=== PATIENT | male | born 1945 | race Caucasian/White ===

== ENCOUNTER 2016-12-22 08:16 | Day surgery (SDC) | payer OTHER ==
[2016-12-22] VITALS (12 sets, daily range): BP systolic 135–196; BP diastolic 68–99; PULSE 67–133; TEMP 36.7–36.9; O2SAT 94–98; Ht 172.7 cm; Wt 115.7 kg
[~2016-12-22] VITALS: Ht 172.7 cm; Wt 115.7 kg
[~2016-12-22 08:16] MED LIST: ALBUAER2 INH; ASPEC81 PO; BNC20 PO; CYAN10005 PO; ESCI10TA17 PO; PRLSR20 PO; SIMV20TA2 PO; [UNRECOGNIZED DRUG - CODE] PO
[2016-12-22] MEDS ORDERED: LIDOCAINE HCL 2% LOCAL 50ML VIAL INFIL ONE (08:17)
[2016-12-22] MEDS ORDERED: FENTANYL CITRATE INJ 50 MCG/1 ML 2 ML VIAL IV ONE ×2 (08:17→11:30)
[2016-12-22] MEDS ORDERED: LEVALBUTEROL 1.25MG/3ML NEB INH ONE (08:17)
[2016-12-22] MEDS ORDERED: LIDOCAINE 4% W/AFRIN NASAL SOLN 4ML ONE (08:17)
[2016-12-22] MEDS ORDERED: MIDAZOLAM HCL 5 MG/ML 1 ML VIAL IV ONE ×2 (08:17→11:30)
[2016-12-22] MEDS ORDERED: IBUP-1449 PO (08:35)
[2016-12-22] MEDS ORDERED: GLC/500 PO (08:57)
[2016-12-22] MEDS ORDERED: CHOL1000 PO (08:59)
[2016-12-22] MEDS ORDERED: [UNRECOGNIZED DRUG - OTHER] PO (08:59)
[2016-12-22] MEDS ORDERED: INSU70IN2 SC (09:04)
[2016-12-22] MEDS ORDERED: INSDGI SC (09:04)
--- NOTE | 2016-12-22 10:24 | History & Physical Bridge Note ---
H&P Re-Evaluation Bridge Note: I have examined the patient, reviewed the History & Physical and in the interval since the performance of the History & Physical I have noted the following changes of clinical significance: No changes noted
--- NOTE | 2016-12-22 10:25 | Procedure Note ---
Pre-Mod Sedation Assessment General Date of Moderate Sedation: Dec 22, 2016. Vital Signs: Vital Signs Past 12 Hours Date Time Temp Pulse Resp B/P Pulse Ox O2 Delivery O2 Flow Rate FiO2 12/22/16 08:35 36.7 80 20 161/75 97 Room Air Pre-Sedation Airway Assessment Oral Cavity: WNL Smoking Status: Never Smoker Mallampati Classification: Class II Procedure Planning Contraindications-for Mod Sed: None Yes Notes The planned sedation has been discussed with the patient and consent obtained. I have identified the patient, determined the appropriateness of sedation and have assessed the patient immediately prior to the procedure. All medicine(s) and interventions are by my order.
[2016-12-22] MEDS ORDERED: NURSING VERBAL MED ORDER ONE (11:15)
--- NOTE | 2016-12-22 11:40 | Discharge Instructions ---
Discharge Instructions Date of Service Dec 22, 2016. Admission Reason for Admission: Asthmatic Bronchitis, Cough Discharge Discharge Diagnosis / Problem: COPD and Cough Discharge Goals Goal(s): Diagnostic testing, Therapeutic intervention Activity Recommendations Activity Limitations: per Instructions/Follow-up section . Instructions / Follow-Up Instructions / Follow-Up ACTIVITY RECOMMENDATIONS: * Rest today, resume normal activity tomorrow. * Do not drive today. SPECIAL CARE INSTRUCTIONS: * Call your physician if you experience any chest or shoulder pain, fever, coughing, spitting up blood (more than 2 teaspoons) or excessive shortness of breath. * Remove dressing from IV site (where needle was placed into the vein) after 2 hours. Apply a warm, moist compress to site if irritation occurs. Call physician if site becomes red or painful to touch. FOLLOW UP VISIT: * Keep any scheduled doctor appointments: December 28, 2016 at 10:30AM with Malina Garza PA-C Current Hospital Diet Discharge Diet Recommended Diet: Diabetes Type 1 Diet Procedures Procedures Performed: Bronchoscopy Pending Studies Studies pending at discharge: yes List of pending studies: - Pulmonary Specimen: Cultures and Pathology Medical Emergencies . Who to Call and When: Medical Emergencies: If at any time you feel your situation is an emergency, please call 911 immediately. . Non-Emergent Contact Non-Emergency issues call your: Adding Machine Operator Contact Number: [phone] ext [phone] . . "Provider Documentation" section prepared by Malina Garza. VTE Core Measure Inpt VTE Proph given/why not?: Contraindicated
--- NOTE | 2016-12-22 11:46 | OPERATIVE REPORT ---
DATE OF OPERATION: 12/22/2016 PROCEDURE: Fiberoptic bronchoscopy with bronchoalveolar lavage. INDICATIONS: Persistent chest congestion refractory to outpatient therapy. ANESTHESIA PREOPERATIVELY: None. ANESTHESIA DURING PROCEDURE: A 5 mg IV Versed, 100 mcg IV fentanyl, 20 mL 2% Xylocaine spray above and below the cords, 4% viscous Xylocaine intranasally. PROCEDURE: Fiberoptic bronchoscope was inserted into the left naris with minimal difficulty and passed to the level of the true vocal cords. The cords appeared to approximate normally with phonation without evidence of lesions or paralysis. The area was anesthetized and the scope was then passed through the cords into the trachea. The left lateral wall was displaced medially in the subglottic region with no obvious endobronchial or intratracheal lesions seen. The maureen was sharp. 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 A copious amount of mucoviscous secretion was seen in the trachea and right mainstem bronchus and lavaged until clear. The right upper lobe, the apical posterior and anterior segments, bronchus intermedius, right middle lobe, medial lateral segments and all basilar segments right lower lobe were free of endobronchial lesions. 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 Left upper lobe, the apical-posterior and anterior segments, lingual subdivision and left lower lobe were lavaged with normosol and the aspirate sent for appropriate studies. No brushings or biopsies were deemed necessary. Severe coughing paroxysms were elicited during the procedure and the procedure was terminated. The patient was given a nebulizer treatment with Xopenex 1.25 mg and transferred to the medical treatment unit hemodynamically stable with no further signs of respiratory compromise. Will await microbiological and cytologic examination of the bronchial washings. I attest to the content of the Intraoperative Record and any orders documented therein. Any exceptio ns are noted below.
[2016-12-26 11:11] LABS: HERPES SIMPLEX CULT SOURCE RESPIRATORY-LLL BRON; HERPES SIMPLEX VIRUS CULT NOT ISOLATED (NOT ISOLATED)
== END 2016-12-22 13:00 | disposition home or self-care (01) ==
LOC: C.ACU 08:16
PROVIDERS: ATTEND Internal Medicine Pulmonary Disease
DX: R05 Cough (principal); J45.909 Unspecified asthma, uncomplicated; J20.9 Acute bronchitis, unspecified; I25.10 Atherosclerotic heart disease of native coronary artery without angina pectoris; E11.9 Type 2 diabetes mellitus without complications; Z87.891 Personal history of nicotine dependence; Z90.49 Acquired absence of other specified parts of digestive tract; Z98.1 Arthrodesis status; Z98.890 Other specified postprocedural states; Z88.8 Allergy status to other drugs, medicaments and biological substances